=== PATIENT | male | born 1955 | race Caucasian/White ===

== ENCOUNTER 2020-06-04 15:58 | Outpatient (REF) | payer OTHER, SELFPAY ==
[2020-06-10 09:11] LABS: SARS-CoV-2 RNA Undetected (Undetected); SARS-CoV-2 Specimen Source Nasopharynx
== END 2020-06-04 16:18 ==
LOC: NCHCN 15:58
PROVIDERS: PCP Nurse Practitioner Family; Visit Provider Nurse Practitioner Family
DX: R05 Cough (principal)
CPT/HCPCS: U0003

== ENCOUNTER 2020-06-28 10:39 | Outpatient (REF) | payer OTHER, SELFPAY ==
[2020-06-28 21:56] LABS: Hemoglobin A1C 11.3 % (3.8-5.6)
[2020-06-28 22:10] LABS: ALT 30 U/L (16-63); AST 17 U/L (15-37); Albumin 3.7 g/dL (3.4-5.0); Alkaline Phosphatase 75 U/L (46-116); Anion Gap 6.7 mmol/L (3-11); BUN 23 mg/dL (7-18); Bilirubin, Total 0.6 mg/dL (0.2-1.0); CO2 30.3 mmol/L (21.0-32.0); CREATININE 0.86 mg/dL (0.70-1.30); Calcium 9.2 mg/dL (8.5-10.1); Calculated LDL 116 mg/dL (<100); Chloride 105 mmol/L (98-107); Cholesterol 220 mg/dL (<200); Glucose 173 mg/dL (74-106); HDL Cholesterol 50 mg/dL (40-60); Sodium 142 mmol/L (136-145); Total Protein 6.9 g/dL (6.4-8.2); Triglyceride 270 mg/dL (<150)
[2020-07-01 09:26] LABS: PSA, Screening 10.2 ng/mL (0.0-4.5)
== END 2020-06-28 10:59 ==
LOC: NCHCN 10:39
PROVIDERS: PCP Nurse Practitioner Family; Visit Provider Family Medicine
DX: Z00.00 Encounter for general adult medical examination without abnormal findings (principal)
CPT/HCPCS: 80053; 80061; 84153; 83036

== ENCOUNTER 2020-09-02 13:33 | Outpatient (REF) | payer SELFPAY ==
[2020-09-02 21:21] LABS: HGB 15.4 g/dL (13.5-17.5); MCH 28.4 pg (27.0-33.0); MCHC 31.4 % (32.0-36.0); MCV 90.2 fL (80-95); MPV 10.7 fL (8.0-11.0); Platelet Count 206 10^3/uL (130-400); RBC 5.43 10^6/uL (4.36-5.78); RDW 13.2 % (11.8-14.1); RDW-SD 43.2 fL; WBC 7.33 10^3/uL (4.4-10.8)
[2020-09-02 21:54] LABS: ALT 60 U/L (16-63); AST 23 U/L (15-37); Albumin 3.4 g/dL (3.4-5.0); Alkaline Phosphatase 106 U/L (46-116); Anion Gap 8.4 mmol/L (3-11); BUN 23 mg/dL (7-18); Bilirubin, Total 0.8 mg/dL (0.2-1.0); CO2 28.6 mmol/L (21.0-32.0); CREATININE 0.98 mg/dL (0.70-1.30); Calcium 8.9 mg/dL (8.5-10.1); Chloride 104 mmol/L (98-107); Creatine Kinase 79 U/L (39-308); Glucose 300 mg/dL (74-106); NT-proBNP 5629 pg/mL (<300); Potassium 4.2 mmol/L (3.5-5.1); Sodium 141 mmol/L (136-145); Total Protein 6.4 g/dL (6.4-8.2)
== END 2020-09-02 13:53 ==
LOC: NCHCN 13:33
PROVIDERS: PCP Nurse Practitioner Family; Visit Provider Internal Medicine
DX: R07.9 Chest pain, unspecified (principal); R05 Cough
CPT/HCPCS: 80053; 82550; 85027; 83880

== ENCOUNTER 2020-12-05 02:04 | Outpatient (CLI) | payer BC, SELFPAY ==
[2020-12-06 15:56] LABS: COVID-19 RT-PCR UVMMC Result Negative (Negative)
== END 2020-12-05 02:24 ==
PROVIDERS: PCP Family Medicine; Visit Provider Internal Medicine Cardiovascular Disease
DX: Z11.52 Encounter for screening for COVID-19 (principal); Z01.810 Encounter for preprocedural cardiovascular examination
CPT/HCPCS: U0003

== ENCOUNTER 2020-12-13 04:17 | Outpatient (CLI) | payer BC, SELFPAY ==
--- NOTE | 2020-12-13 11:00 | ETT_ITS ---
APPROVED REPORT Exam: Exercise Treadmill Patient Location: Out-Patient Room/Bed: Stress Nurse: Misty Bueno RN Ordering Provider:HOPE LUKE, Contact Number: [phone] BMI: 30.70 Baseline Rhythm: Sinus Rhythm Comment: frequent multifocal PVCs, couplets Indications: Exertional chest pain. Medical History Medical History: Cerebral Aneurysm, HTN, HLD, DM, Obesity, Peripheral Edema, Subarachnoid hemorrhage, LV dysfunction Cardiac Medications: Metformin, Valsartan, Amlodipine, ASA, Januvia, Pantoprazole, Furosemide, Glipiz timo, Nitro SL. Allergies: Metoprolol succinate Cardiac Risk Factors: HTN, Hyperlipidemia, Diabetes (non-insulin), Obesity Previous Cardiac Procedures: None Pretest Chest Pain Characteristics: Nonexertional epigastric pressure, 2/10 Exercise History: Sedentary Physical Disabilities: None. Lung Sounds: Clear to auscultation Heart Sounds: Regular, Regular Stress Test Details Test: Exercise stress testing was performed using a modified Satinder protocol. Rest Stress HR Resting HR Supine: 98 bpm Max Heart Rate (APMHR): 157 bpm Resting HR Standin bpm Target HR (85% APMHR): 133 bpm Max HR Achieved: 138 bpm % of APMHR: 87 Recovery HR: 105 bpm HR response to stress: Normal HR response to stress BP Resting BP Supine: 132/72 mmHg Resting BP Standin/70 mmHg Max BP: 152/82 mmHg Recovery BP: 140/90 mmHg BP response to stress: Normal blood pressure response to stress. Comment: delayed BP recovery. ECG Resting ECG: Sinus Rhythm Ectopy: frequent multifocal PVCs, couplets Stress ECG: Sinus Tachycardia, , Clear, Sinus Rhythm, Sinus Bradycardia, Sinus Tachycardia ST Change: No significant ST segment changes noted Arrhythmia: frequent mutifocal PVCs, couplets Recovery ECG: Sinus Tachycardia Recovery ST Change: No significant ST segment changes noted Recovery Arrhythmia: frequent multifocal PVCs, couplets, 3 beat VT Clinical Reason for Termination: Fatigue, Dyspnea Stress Symptoms: Dyspnea Exercise duration: 6 min28 sec Highest Stage Reached: Stage 3: 3.4 mph at 14% grade. Exercise capacity: 7.29 METs Law Treadmill Score: 4.8 Rate Pressure Product: [id number] Stress ECG Conclusion 1. The resting EKG was normal 2. The patient exercised on the modified Satinder protocol and completed a workload of 7.29 METS. He ex ercised for 6 minutes and 28 seconds stopping due to shortness of breath and fatigue 3. The patient achieved 87% of predicted heart rate for age. Heart rate and blood pressure response to exercise was normal 4. Electrocardiographically there was no evidence of myocardial ischemia 5. Occasional premature ventricular contractions were present throughout Law Treadmill Score is 4.8 which is Moderate risk. Stress Test Summary STAGE Time (mins) Speed (mph) Grade (%) HR BP SYMPTOMS METS Supine 98 132/72 Standing 104 128/70 1 3 1.7 10 126 152/82 SpO2 95%, SOB 4.6 2 6 2.5 12 130 7 1 min recovery 129 168/92 SpO2 85%, SOB 3 min recovery 114 194/106 SpO2 89%, SOB resolved 6 min recovery 106 182/106 SpO2 94% 9 min recovery 106 154/106 12 min recovery 105 140/90 Max speed on treadmill 2.5 mph; modified in the 3rd stage to maintain activity. Patient reports slight, constant epigastric pressure at baseline (2/10), unchanged during ETT.
== END 2020-12-13 04:37 ==
PROVIDERS: PCP Family Medicine; Visit Provider Internal Medicine Cardiovascular Disease
DX: R07.89 Other chest pain (principal); I10 Essential (primary) hypertension; E78.5 Hyperlipidemia, unspecified; E11.9 Type 2 diabetes mellitus without complications; E66.9 Obesity, unspecified
CPT/HCPCS: 93017

== ENCOUNTER 2020-12-20 17:31 | Outpatient (REF) | payer BC, SELFPAY ==
[2020-12-20 13:36] LABS: HGB 14.6 g/dL (13.5-17.5); MCH 27.7 pg (27.0-33.0); MCHC 31.1 % (32.0-36.0); Platelet Count 241 10^3/uL (130-400); RBC 5.28 10^6/uL (4.36-5.78); RDW 14.1 % (11.8-14.1); RDW-SD 45.8 fL; WBC 7.37 10^3/uL (4.4-10.8)
[2020-12-20 14:06] LABS: ALT 25 U/L (16-63); AST 16 U/L (15-37); Albumin 3.4 g/dL (3.4-5.0); Alkaline Phosphatase 92 U/L (46-116); BUN 26 mg/dL (7-18); Bilirubin, Total 0.5 mg/dL (0.2-1.0); Calcium 8.8 mg/dL (8.5-10.1); Chloride 106 mmol/L (98-107); Glucose 140 mg/dL (74-106); Potassium 4.3 mmol/L (3.5-5.1); Sodium 144 mmol/L (136-145); TSH (W/Ref FT4) 2.43 uIU/mL (0.36-3.74); Total Protein 6.5 g/dL (6.4-8.2)
== END 2020-12-20 17:51 ==
LOC: NCHCN 17:31
PROVIDERS: PCP Family Medicine; Visit Provider Family Medicine
DX: I50.9 Heart failure, unspecified (principal); R07.89 Other chest pain; R60.9 Edema, unspecified; Z01.812 Encounter for preprocedural laboratory examination
CPT/HCPCS: 80053; 85027; 84443

== ENCOUNTER 2020-12-24 02:22 | Outpatient (CLI) | payer BC, SELFPAY ==
--- NOTE | 2020-12-24 15:07 | DI.US_ITS ---
APPROVED REPORT EXAM: Comprehensive 2D, Doppler, and color-flow Echocardiogram Patient Location: Out-Patient [place] Trimmer: Karen Louis RDCS (AE) Indications: CHF Other Information Study Quality: Adequate Conclusion The left ventricle is mildly dilated. There is borderline concentric left ventricular hypertrophy. Estimated ejection fraction is approximately 25%. There is global hypokinesis The right ventricle is normal in size and mildly hypokinetic The left atrium is severely dilated. The right atrium is moderately dilated The aortic valve is structurally normal without stenosis or regurgitation Mildly thickened mitral leaflets with moderate regurgitation The tricuspid valve is structurally normal with mild to moderate regurgitation. Estimated right vent ricular systolic pressure is 50 mmHg consistent with moderate pulmonary hypertension Normal pulmonic valve with mild regurgitation Moderately dilated ascending aorta, 4.22 cm Wall motion Left Ventricle Left ventricle is moderately dilated. Left ventricular systolic function is moderate to severely decr eased. Borderline concentric left ventricular hypertrophy. There is global hypokinesis of the left ve ntricle. There is no ventricular septal defect visualized. LVEF is 25%. Right Ventricle The right ventricle is normal size. Right ventricle is mildly hypokinetic. The RVSP is 50.5mmHg. Righ t ventricle is hypertrophied. Right ventricle free wall is thin. Atria Left atrium is severely dilated. Right atrium is moderately dilated. The interatrial septum is intact with no evidence for an atrial septal defect. Aortic Valve Aortic valve is trileaflet. There is no aortic valvular stenosis. No aortic regurgitation is present. Mitral Valve Mildly thickened mitral leaflets No evidence of mitral valve stenosis. moderate mitral regurgitation. Tricuspid Valve The tricuspid valve is normal in structure. There is no tricuspid valve stenosis. Mild to moderate tr icuspid regurgitation. Pulmonic Valve The pulmonary valve is normal in structure. There is no pulmonic valvular stenosis. Mild pulmonic reg urgitation. Great Vessels The aortic root is normal in size. The ascending aorta is moderately dilated. Aortic arch is not well visualized. The IVC collapses <50% with inspiration. Pericardium There is no pericardial effusion. 2D Dimensions IVSD d PLAX 1.23 cm M: 0.6-1.2 LV Vol A2C d MOD 215.9 mL LVPW d PLAX 1.22 cm M: 0.6 - 1.2 LV Vol A4C d MOD 215.1 mL LVID d PLAX 6.43 cm M: 4.2 - 5.8 LA vol/ BSA A2C s A-L 46.8 mL/m2 LVDs 5.75 cm M: 2.5 - 4.0 LA vol/ BSA A4C s A-L 55.1 mL/m2 Ao Root d 3.18 cm M: 3.1 - 3.7 LA Vol/ BSA Biplane s A-L 54.0 mL/m2 RA Area A4C 26.83 cm2 LA Area A4C s MOD 32.44 cm2 RA Vol/ BSA A4C s A-L 42.5 mL/m2 LA Area A2C s MOD 28.13 cm2 Ao Asc Diam d 4.22 cm M: 2.6 - 3.4 LV EF A4C MOD 25.1 % LV EF Teichholz 21.1 % LV EF A2C MOD 26.5 % LVEF (Kong's) 24.18 % M: 52 - 72 LV EF Biplane MOD 24.2 % LV Volume 160.28 mL M: 62 - 150 SV 52.95 mL LV Volume Index 74.54 mL/m2 M: 34 - 74 SV Index 24.55 mL/m2 LV Vol Biplane MOD 219.0 mL FS 9.80 % M-Mode TAPSE 1.61 cm (M/F) >1.7 LV Diastology MV E' medial 0.079 (>0.07 m/s) MV E Vmax 0.92 (0.4-1.3 m/s) LV E/e MED 11.55 (<14) MV E' lateral 0.075 (>0.1 m/s) LV E/e LAT 12.30 (<14) MV E/E' medial 11.57 MV E/E' lateral 12.33 Aortic Valve LVOT Area 3.94 cm2 AoV Area Vmax 3.64 cm2 LVOT Vmax 1.05 m/s AoV Area/ BSA (Vmax) 1.69 cm2/m2 LVOT Mean Abebe. 0.70 m/s DANILO Mean Abebe. 3.35 cm2 LVOT Peak Grad 4.4 mmHg DANILO Mean Abbee. Index 1.55 cm2/m2 LVOT Mean Grad 2.2 mmHg LVOT VTI 0.150 m LVOT Diam s 2.20 cm AoV Vmax 1.13 m/s Velocity Ratio 0.92 AoV Mean Abebe. 0.82 m/s AoV Peak Grad 5.2 mmHg LVOT SV 59.11 mL AoV Mean Grad 2.9 mmHg AoV VTI 0.166 m AoV Area VTI 3.56 cm2 AoV Area/ BSA (VTI) 1.65 cm/m2 Mitral Valve MV DT 179 (160-240 msec) MR Vmax 3.84 m/s MV PHT 52 msec MR VTI 1.080 m MV Area PHT 4.23 cm2 MR Peak Grad 58.9 mmHg MV VTI 0.206 m MR Mean Grad 48.4 mmHg MV VTI Annulus 0.210 m MR PISA Radius 0.49 cm MV Area VTI 2.92 (4.0-6.0 cm2) MR EROA 0.14 cm2 MR Aliasing Velocity 0.35 m/s MR PISA 1.52 cm2 Pulmonary Valve PV Vmax 0.70 (0.5-1.5 m/s) RVOT Peak Gr. 0.82 mmHg PV Peak Grad 2.0 mmHg RVOT Mean Gr. 0.40 mmHg PV Mean Grad 1.1 mmHg RVOT VTI 0.072 m PV VTI 0.109 m RVOT Vmax 0.45 m/s Tricuspid Valve TR Peak Grad 42.4 mmHg TR Vmax 3.26 m/s RA Pressure 8.00 mmHg RVSP (TR) 50.5 mmHg
== END 2020-12-24 02:42 ==
PROVIDERS: PCP Family Medicine; Visit Provider Family Medicine
DX: I08.1 Rheumatic disorders of both mitral and tricuspid valves (principal)
CPT/HCPCS: 93306

== ENCOUNTER 2021-01-06 09:47 | Outpatient (REF) | payer BC, SELFPAY ==
[2021-01-06 14:25] LABS: Anion Gap 8.2 mmol/L (3-11); BUN 37 mg/dL (7-18); CO2 28.8 mmol/L (21.0-32.0); CREATININE 1.4 mg/dL (0.70-1.30); Chloride 102 mmol/L (98-107); Estimated GFR 51.18 (mL/min/1.73m2); Glucose 212 mg/dL (74-106); Potassium 4.1 mmol/L (3.5-5.1); Sodium 139 mmol/L (136-145)
== END 2021-01-06 09:48 | disposition home or self-care (01) ==
LOC: NCHCN 09:47
PROVIDERS: PCP Family Medicine; Visit Provider Family Medicine
DX: E11.9 Type 2 diabetes mellitus without complications (principal); I50.9 Heart failure, unspecified
CPT/HCPCS: 80048

== ENCOUNTER 2021-01-30 09:37 | Outpatient (CLI) | payer BC, SELFPAY ==
--- NOTE | 2021-01-30 09:30 | RT.EKG_ITS ---
APPROVED REPORT Exam: Resting ECG Patient Location: O HR:82 bpm ECG Measurements Heart Rate 82 AXIS MO 197 P 47 QRSd 120 QRS -15 QT 436 T 51 QTc 510 Conclusion Sinus rhythm...normal P axis, V-rate 50- 99 Ventricular premature complex...V complex w/ short R-R interval Left atrial enlargement...P, P'>60mS, <-0.15mV V1 Nonspecific intraventricular conduction delay...QRSd >115mS, not LBBB/RBBB Inferior infarct, old...Q >35mS, II III aVF Lateral leads are also involved...lat Q or ST-T abnormalities Baseline wander in lead(s) V6
== END 2021-01-30 09:38 | disposition home or self-care (01) ==
LOC: DI.CARD 09:38
PROVIDERS: PCP Family Medicine; Visit Provider Internal Medicine Cardiovascular Disease
DX: I34.0 Nonrheumatic mitral (valve) insufficiency (principal); I77.810 Thoracic aortic ectasia; I50.20 Unspecified systolic (congestive) heart failure
CPT/HCPCS: 93010

== ENCOUNTER 2021-02-07 03:36 | Outpatient (CLI) | payer BC, SELFPAY ==
[2021-02-07 11:32] LABS: Hemoglobin A1C 8.1 % (<5.7)
[2021-02-07 12:03] LABS: ALT 28 U/L (16-63); AST 19 U/L (15-37); Albumin 3.4 g/dL (3.4-5.0); Alkaline Phosphatase 109 U/L (46-116); Anion Gap 8.1 mmol/L (3-11); BUN 25 mg/dL (7-18); Bilirubin, Total 0.6 mg/dL (0.2-1.0); CO2 30.9 mmol/L (21.0-32.0); CREATININE 1.1 mg/dL (0.70-1.30); Chloride 102 mmol/L (98-107); Glucose 147 mg/dL (74-106); NT-proBNP 2028 pg/mL (<300); Potassium 3.7 mmol/L (3.5-5.1); Sodium 141 mmol/L (136-145); TSH 2.71 uIU/mL (0.36-3.74); Total Protein 7.3 g/dL (6.4-8.2)
== END 2021-02-07 03:37 | disposition home or self-care (01) ==
LOC: LBO 03:36
PROVIDERS: PCP Family Medicine; Visit Provider Internal Medicine Cardiovascular Disease
DX: E11.65 Type 2 diabetes mellitus with hyperglycemia (principal); I50.20 Unspecified systolic (congestive) heart failure
CPT/HCPCS: 36415; 80053; 83036; 83880; 84443

== ENCOUNTER 2021-03-28 11:00 | Outpatient (RCR) | payer BC, SELFPAY | END 2021-03-28 23:59 | disposition home or self-care (01) | LOC: CR 11:00 | PROVIDERS: PCP Family Medicine; Visit Provider Family Medicine | DX: I25.10 Atherosclerotic heart disease of native coronary artery without angina pectoris (principal); Z51.89 Encounter for other specified aftercare; Z95.5 Presence of coronary angioplasty implant and graft; I50.9 Heart failure, unspecified | CPT/HCPCS: S9472 ==

== ENCOUNTER 2021-04-02 11:00 | Outpatient (RCR) | payer BC, SELFPAY | END 2021-04-28 23:59 | disposition home or self-care (01) | LOC: CR 11:00 | PROVIDERS: PCP Family Medicine; Visit Provider Family Medicine | DX: Z51.89 Encounter for other specified aftercare (principal); I25.10 Atherosclerotic heart disease of native coronary artery without angina pectoris; Z95.5 Presence of coronary angioplasty implant and graft | CPT/HCPCS: S9472 ==

== ENCOUNTER 2021-04-14 09:31 | Outpatient (REF) | payer BC, SELFPAY ==
[2021-04-14 13:37] LABS: BUN 23 mg/dL (7-18); CREATININE 1.1 mg/dL (0.70-1.30); Chloride 102 mmol/L (98-107); Glucose 136 mg/dL (74-106); Potassium 3.8 mmol/L (3.5-5.1); Sodium 142 mmol/L (136-145)
== END 2021-04-14 09:32 | disposition home or self-care (01) ==
LOC: NCHCN 09:31
PROVIDERS: PCP Family Medicine; Visit Provider Family Medicine
DX: E11.9 Type 2 diabetes mellitus without complications (principal); I50.9 Heart failure, unspecified
CPT/HCPCS: 80048

== ENCOUNTER 2021-04-14 14:17 | Outpatient (CLI) | payer BC, SELFPAY ==
--- NOTE | 2021-04-18 10:45 | DI.CT_ITS ---
Exam(s) CT BRAIN NECK CTA EXAM: CT BRAIN NECK CTA CLINICAL HISTORY: CEREBRAL ANEURYSM I67.1. TECHNIQUE: Imaging Protocol: Axial CT angiography was performed with multi-slice acquisition and mu lti-planar and/or 3D reconstructions. CONTRAST MATERIAL: Intravenous: Omnipaque 350 Contrast volume:structured data in ml COMPARISON: No exams were available for comparison FINDINGS: CT angiography of the cervical cranial region was performed according to the usual protocol with intr avenous infusion of 85 cc of Omnipaque 350.. Initial noncontrast scanning of the head shows aneurysm clips in place which appear to be associated with anterior communicating arteries and anterior cerebral arteries. Frontal craniotomy is noted. T here is no evidence of acute intracranial hemorrhage, mass effect, or midline shift. Left frontal en cephalomalacia is noted. Visualized lung apices are clear. Visualized portions of thoracic aorta and pulmonary arterial circul ation are unremarkable. There is no evidence of a cervical mass or adenopathy. The tracheal laryngeal structures appear intact. The common, internal, and external carotid arteries are within normal limits in the cervical region e xcept for slight atheromatous plaque formation in the regions of the carotid bifurcations. With no e vidence of aneurysm, stenosis, or dissection. The vertebral arteries are unremarkable in appearance in the cervical region with no evidence of aneu rysm, stenosis, or dissection. Intracranial portions of the internal carotid arteries appear normal with no evidence of aneurysm, st enosis, or dissection. Intracranial vertebral arteries and basilar artery appear normal with no evidence of aneurysm, stenos is or dissection. No aneurysm identified in the region of the [id number]. Aneurysm clips noted in anterior commu nicating artery and anterior cerebral artery regions. No evidence of significant stenosis, dissectio n, or recurrent aneurysm. 5 minutes delayed images show no evidence of intracranial mass lesion or enhancing lesion. IMPRESSION: No evidence of acute process. Left frontal encephalomalacia, prior frontal craniotomy with multiple aneurysm clips placed as described above corresponding to anterior communicating arteries, and aneury sm clips associated with anterior cerebral arteries at the level of the frontal horns of the lateral ventricles. RADIATION DOSE DELIVERED: 2,313.67mGy.cmTotal DLP 2,313.67mGy.cm Total DLP DATA REPOSITORY: All CT scans at this facility are submitted to the National Radiology Data Registry (NRDR) Dose Index Registry (DIR) with the [employer] (A[employer]). RADIATION OPTIMIZATION: All CT scans at this facility use at least one of these dose optimization te chniques: automated exposure control; mA and/or kV adjustment per patient size (includes targeted exa ms where dose is matched to clinical indication); or iterative reconstruction.
[2021-04-18] MEDS: Omnipaque 350 MG/ML 100 ML BTL IJ (11:55)
[2021-04-18] MEDS: Normal Saline - Diluent 50 ML VIAL IV (11:56)
== END 2021-04-14 14:37 ==
PROVIDERS: PCP Family Medicine; Visit Provider Family Medicine
DX: I67.1 Cerebral aneurysm, nonruptured (principal)
CPT/HCPCS: 70496; 70498; J3490

== ENCOUNTER 2021-06-12 02:25 | Outpatient (CLI) | payer BC, SELFPAY ==
--- NOTE | 2021-06-12 14:23 | DI.US_ITS ---
APPROVED REPORT EXAM: Comprehensive 2D, Doppler, and color-flow Echocardiogram Patient Location: Out-Patient [place] Operator: Karen Louis RDCS (AE) Indications: Cardiomyopathy, Dilated ascending aorta, Mitral Regurgitation Other Information Study Quality: Adequate Conclusion Left Ventricle : Left ventricle is borderline dilated. Left ventricular systolic function is low norm al. Mild concentric left ventricular hypertrophy. There is global hypokinesis of the left ventricle. The left ventricular diastolic function is normal. LVEF is 50%. Right Ventricle : The right ventricle is normal size. The right ventricular systolic function is norm al. The RVSP is 22.1mmHg. Atria : The left atrium size is normal. The right atrium size is normal. Mitral Valve : The mitral valve is mildly thickened but opens well. Mild mitral regurgitation. No carmina dence of mitral valve stenosis. Great Vessels : The aortic root is normal in size. The ascending aorta is moderately dilated (4cm). A ortic arch is not well visualized. IVC is normal in size and collapses >50% with inspiration. Compared to study from 12/24/2020, patient's ejection fraction has improved from 25% to 50%. His mitr al regurgitation has also improved from moderate to mild. Wall motion Left Ventricle Left ventricle is borderline dilated. Left ventricular systolic function is low normal. Mild concentr ic left ventricular hypertrophy. There is global hypokinesis of the left ventricle. The left ventricu lar diastolic function is normal. There is no ventricular septal defect visualized. LVEF is 50%. Right Ventricle The right ventricle is normal size. The right ventricular systolic function is normal. The RVSP is 22 .1mmHg. Atria The left atrium size is normal. The right atrium size is normal. The interatrial septum is intact wit h no evidence for an atrial septal defect. Aortic Valve The aortic valve is normal in structure. Aortic valve is trileaflet. There is no aortic valvular sten osis. No aortic regurgitation is present. Mitral Valve The mitral valve is mildly thickened but opens well. No evidence of mitral valve stenosis. Mild jose l regurgitation. Tricuspid Valve The tricuspid valve is normal in structure. There is no tricuspid valve stenosis. Mild tricuspid regu rgitation. Pulmonic Valve The pulmonary valve is normal in structure. There is no pulmonic valvular stenosis. Mild pulmonic reg urgitation. Great Vessels The aortic root is normal in size. The ascending aorta is moderately dilated (4cm). Aortic arch is no t well visualized. IVC is normal in size and collapses >50% with inspiration. Pericardium There is no pericardial effusion. 2D Dimensions IVSD d PLAX 1.23 cm M: 0.6-1.2 LV Vol A2C d MOD 185.2 mL LVPW d PLAX 1.22 cm M: 0.6 - 1.2 LV Vol A4C d MOD 187.6 mL LVID d PLAX 5.83 cm M: 4.2 - 5.8 LA vol/ BSA A2C s A-L 29.3 mL/m2 LVDs 4.20 cm M: 2.5 - 4.0 LA vol/ BSA A4C s A-L 22.6 mL/m2 Ao Root d 3.40 cm M: 3.1 - 3.7 LA Vol/ BSA Biplane s A-L 27.0 mL/m2 RA Area A4C 20.00 cm2 LA Area A4C s MOD 17.97 cm2 RA Vol/ BSA A4C s A-L 28.2 mL/m2 LA Area A2C s MOD 19.49 cm2 Ao Asc Diam d 4.01 cm M: 2.6 - 3.4 LV EF A4C MOD 50.4 % LV EF Teichholz 53.3 % LV EF A2C MOD 50.7 % LVEF (Kong's) 49.36 % M: 52 - 72 LV EF Biplane MOD 49.4 % LV Volume 139.38 mL M: 62 - 150 SV 93.01 mL LV Volume Index 67.00 mL/m2 M: 34 - 74 SV Index 44.57 mL/m2 LV Vol Biplane MOD 188.5 mL FS 27.90 % M-Mode TAPSE 1.68 cm (M/F) >1.7 LV Diastology MV E' medial 0.060 (>0.07 m/s) E/A Ratio 0.6 LV E/e MED 7.65 (<14) MV E Vmax 0.46 (0.4-1.3 m/s) MV E' lateral 0.073 (>0.1 m/s) MV A Vmax 0.80 (0.4-1.3 m/s) LV E/e LAT 6.25 (<14) MV E/A Ratio 0.55 MV E/E' medial 7.65 MV E/E' lateral 6.25 Aortic Valve LVOT Area 3.49 cm2 AoV Area Vmax 2.36 cm2 LVOT Vmax 1.23 m/s AoV Area/ BSA (Vmax) 1.13 cm2/m2 LVOT Mean Abebe. 0.75 m/s DANILO Mean Abebe. 1.99 cm2 LVOT Peak Grad 6.0 mmHg DANILO Mean Abebe. Index 0.95 cm2/m2 LVOT Mean Grad 2.8 mmHg LVOT VTI 0.251 m LVOT Diam s 2.10 cm AoV Vmax 1.81 m/s Velocity Ratio 0.67 AoV Mean Abebe. 1.32 m/s AoV Peak Grad 13.1 mmHg LVOT SV 87.60 mL AoV Mean Grad 7.4 mmHg AoV VTI 0.377 m AoV Area VTI 2.33 cm2 AoV Area/ BSA (VTI) 1.11 cm/m2 Mitral Valve MV DT 265 (160-240 msec) MR Vmax 4.69 m/s MV PHT 77 msec MR VTI 1.453 m MV Area PHT 2.86 cm2 MR Peak Grad 88.1 mmHg MV VTI 0.373 m MR Mean Grad 66.4 mmHg MV VTI Annulus 0.378 m MV Area VTI 2.38 (4.0-6.0 cm2) Pulmonary Valve PV Vmax 1.07 (0.5-1.5 m/s) RVOT Peak Gr. 2.55 mmHg PV Peak Grad 4.6 mmHg RVOT Mean Gr. 1.35 mmHg PV Mean Grad 2.3 mmHg RVOT VTI 0.157 m PV VTI 0.244 m RVOT Vmax 0.80 m/s Tricuspid Valve TR Peak Grad 19.1 mmHg TR Vmax 2.19 m/s RA Pressure 3.00 mmHg RVSP (TR) 22.1 mmHg
== END 2021-06-12 02:45 ==
PROVIDERS: PCP Family Medicine; Visit Provider Internal Medicine Cardiovascular Disease
DX: I77.810 Thoracic aortic ectasia (principal); I34.0 Nonrheumatic mitral (valve) insufficiency
CPT/HCPCS: 93306

== ENCOUNTER 2022-07-20 09:54 | Outpatient (CLI) | payer BC, SELFPAY ==
--- NOTE | 2022-07-20 09:45 | RT.EKG_ITS ---
APPROVED REPORT Exam: Resting ECG Reason for Exam: Annual Check Patient Location: O HR:70 bpm ECG Measurements Heart Rate 70 AXIS VA 212 P 57 QRSd 106 QRS -14 QT 400 T 56 QTc 432 Conclusion Sinus rhythm...normal P axis, V-rate 50- 99 Borderline prolonged VA interval...VA >212, V-rate 50- 90 Left atrial enlargement...P, P'>60mS, <-0.15mV V1 early transition...QRS area>0 in V2 Possible Inferior infarct, old...Q >35mS, II III aVF
== END 2022-07-20 09:55 | disposition home or self-care (01) ==
LOC: DI.CARD 09:55
PROVIDERS: PCP Family Medicine; Visit Provider Internal Medicine Cardiovascular Disease
DX: I10 Essential (primary) hypertension (principal); I25.10 Atherosclerotic heart disease of native coronary artery without angina pectoris; I34.0 Nonrheumatic mitral (valve) insufficiency; I50.20 Unspecified systolic (congestive) heart failure; I77.810 Thoracic aortic ectasia; R94.31 Abnormal electrocardiogram [ECG] [EKG]
CPT/HCPCS: 93010

== ENCOUNTER 2023-01-12 09:15 | Emergency (ER) | payer BC, SELFPAY ==
[2023-01-12] VITALS (46 sets, daily range): BP systolic 132–159; BP diastolic 88–100; PULSE 65–82; RESP 9–21; TEMP 36.8; O2SAT 92–99
--- NOTE | 2023-01-12 09:45 | DI.RAD_ITS ---
Exam(s) XR CHEST 2V PA LATERAL EXAM: XR CHEST 2V PA LATERAL CLINICAL HISTORY: AMS/mentation changes. TECHNIQUE: 2D digital imaging was performed. COMPARISON: No exams were available for comparison FINDINGS: 2 views: Cardiomegaly. Mediastinum not widened. Lungs are clear. No infiltrates nor pleural effusions. No pulmonary edema. IMPRESSION: No acute pulmonary findings. Cardiomegaly. DATA REPOSITORY: RADIATION DOSE DELIVERED:
--- NOTE | 2023-01-12 10:00 | RT.EKG_ITS ---
APPROVED REPORT Exam: Resting ECG Reason for Exam: Word finding difficulties Patient Location: E HR:76 bpm ECG Measurements Heart Rate 76 AXIS AR 202 P 113 QRSd 103 QRS -8 QT 422 T 79 QTc 474 Conclusion Sinus rhythm...normal P axis, V-rate 60- 99 Probable left atrial enlargement...P >50mS, <-0.10mV V1 Inferior infarct, old...Q >35mS, II III aVF Normal sinus rhythm rate of 76 with interventricular conduction delay first-degree AV block and left axis deviation. QTc within normal limits. T wave inversion in aVL. Compared to prior dated last ye ar first-degree AV block interventricular conduction delay are persistent. T wave inversion in aVL h as replaced T wave flattening.
--- NOTE | 2023-01-12 10:00 | ED.GENADUL_ITS ---
Discharge Plan Disposition Patient Disposition: Home Discharge Details Clinical Impression: Hyperglycemia due to type 2 diabetes mellitus Primary Care Provider: Samuel Freitas ED Provider: Mehul Oconnor Home Meds and New Rx's Prescriptions: No Action metformin 1,000 mg tablet 1,000 mg PO BID aspirin 81 mg tablet,delayed release (DR/EC) 81 mg PO DAILY Patient Comments: These are not on patients home med list. glipizide 10 mg tablet 10 mg PO DAILY Patient Comments: These are not on patients home med list. furosemide 40 mg tablet 40 mg PO DAILY Qty: 90 3RF Patient Comments: These are not on patients home med list. spironolactone 25 mg tablet 25 mg PO DAILY Qty: 90 3RF Patient Comments: These are not on patients home med list. amlodipine 10 mg tablet 5 mg PO BID Qty: 180 4RF atorvastatin 20 mg tablet 20 mg PO QPM Qty: 90 3RF carvedilol 12.5 mg tablet 12.5 mg PO BID Qty: 180 3RF Rx Instructions: must administer with a meal/food Entresto 49-51 mg tablet 1 tab PO BID Qty: 60 1RF amlodipine 5 mg tablet 5 mg PO BID Patient Comments: Take 1 tablet by mouth twice a day clopidogrel [Plavix] 75 mg Tablet 75 mg PO DAILY Discharge Instructions Instructions: Diabetic Hyperglycemia (ED) Additional Instructions: You were seen in the emergency department for your difficulty speaking. Your CAT scan showed no sign of any bleeding in your head. Your blood work showed that you had some minor damage to your heart. You also had a mild injury to your kidney. Please continue checking your blood sugars at home and return to the emergency department if you cannot read them on your monitor. Please also return if you have any other concerns. Please continue taking your outpatient medications for diabetes and call your primary care provider tomorrow for follo w-up later this week. Discharge Data Discharge Date/Time-TO BE ENTERED AT DEPARTURE: 01/12/23 14:40 Medical Decision Making Medical Records Medical records narrative: This is a normothermic and not tachycardic 67-year-old male with a known history of cerebral aneurysm and type 2 diabetes in the emergency department now in the setting of transient changes in his ability to speak. He has no indication for CTA head based on his lack of upper extremity weakness lack of visual changes however based on his history cerebral aneurysm will obtain a contrast study. His fingerstick blood glucose was markedly elevated so we will obtain venous blood gas and beta hydroxybutyrate to assess for DKA. Given the duration of time since his began I do not feel that he is a candidate for tPA. He had no tonic-clonic activity to suggest seizure. No fevers to suggest meningitis. 12:10 PM I spoke with Dr. Daniel from neurology. She was concerned about the timing of the IV fluid bolus of the patient's neck. I spoke with Alla the lead injection mold technician and asked her to touch base with the radiologist to determine whether or not the patient required a repeat CT neck. Dr. Daniel also noted that given that the patient had clips from his remote cerebral aneurysm patient will be unable to obtain an MRI. She advised continuing aspirin and clopidogrel as she requested a 30-day outpatient Holter monitor. It is certainly a possibility that given the patient's known encephalomalacia that he could have recrudescence of his symptoms given his acute metabolic abnormalities. 1:10 PM Patient was feeling markedly improved. He was speaking clearly. I spoke with his primary care provider Dr. Freitas and he will help to arrange close outpatient follow-up. Asked him to follow-up with the patient. He advised continuing his oral home medications. 2:35 PM I spoke with Dr. Connolly from cardiology as the patient had a positive delta troponin. She was not concerned about this minimal change. This is likely secondary to his significant metabolic abnormalities. Unfortunately we do not have Holter monitors at the moment. Respiratory therapy will reportedly mail the patient a Holter monitor. Given that he has had no chest pain nor any dysrhythmias in the emergency department I feel that he does not require Holter monitor emergently. I did advise the patient to return to the emergency department if he had any weakness chest pain or any fevers. He understood his return indications and was discharged with outpatient PMD follow-up. His ALETHEA was improving in the emergency department. Given has not been nauseous nor vomiting I did not feel he required hospitalization for IV fluids. We will proceed with an empiric trial of expectant outpatient management with PMD follow-up. Patient's was with him throughout his entire ED course and understood his return indications. HPI General Date/Time Provider Initiated Documentation: 01/12/23 09:58 . HPI Narrative: This is a 67-year-old male with a history of cerebral aneurysm arriving via private vehicle with his in the setting of changes in the pattern of his speaking. He has a history of diabetes has not been adherent with his outpatient oral antidiabetic medications. He has had worsening disorientation word finding difficulties for the past approximately 12 hours. He has had no weakness. He has had no nausea vomiting dysuria nor frequency. He denies chest pain. 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 He did not strike his head. She does not know when he last used his insulin. Patient reports that he has not taken prescriptions but does have refills. Patient arrived as a stroke alert and based on the acuity of his presentation I did not obtain additional history. Related Data Home Medications Medication Instructions Recorded Confirmed aspirin 81 mg tablet,delayed 81 mg PO DAILY 01/30/21 07/20/22 release glipizide 10 mg tablet 10 mg PO DAILY 01/30/21 07/20/22 metformin 1,000 mg tablet 1,000 mg PO BID 01/30/21 01/12/23 furosemide 40 mg tablet 40 mg PO DAILY #90 tabs 07/20/22 07/20/22 spironolactone 25 mg tablet 25 mg PO DAILY #90 tabs 07/20/22 07/20/22 amlodipine 10 mg tablet 5 mg PO BID #180 tabs 09/21/22 atorvastatin 20 mg tablet 20 mg PO QPM #90 tabs 09/21/22 01/12/23 carvedilol 12.5 mg tablet 12.5 mg PO BID #180 tabs 09/21/22 01/12/23 sacubitril 49 mg-valsartan 51 mg 1 tab PO BID #60 tabs 09/21/22 01/12/23 tablet (Entresto) amlodipine 5 mg tablet 5 mg PO BID 01/12/23 01/12/23 clopidogrel 75 mg tablet (Plavix) 75 mg PO DAILY 01/12/23 01/12/23 Previous Rx's Medication Instructions Recorded furosemide 40 mg tablet 40 mg PO DAILY #90 tabs 07/20/22 spironolactone 25 mg tablet 25 mg PO DAILY #90 tabs 07/20/22 amlodipine 10 mg tablet 5 mg PO BID #180 tabs 09/21/22 atorvastatin 20 mg tablet 20 mg PO QPM #90 tabs 09/21/22 carvedilol 12.5 mg tablet 12.5 mg PO BID #180 tabs 09/21/22 sacubitril 49 mg-valsartan 51 mg 1 tab PO BID #60 tabs 09/21/22 tablet (Entresto) Allergies Allergy/AdvReac Type Severity Reaction Status Date / Time metoprolol AdvReac Intermediate low HR Verified 01/12/23 09:45 General Stated Complaint: CVA/TIA BAYRON: 2 PFSH All Active Problems (Updated 01/12/23 @ 14:40 by Mehul Oconnor MD) Hyperglycemia due to type 2 diabetes mellitus (Acute) Coronary artery disease (Chronic) Mild ascending aorta dilatation (Acute) Mitral regurgitation (Chronic) Heart failure with reduced ejection fraction (Acute) Hypertension (Chronic) Uncontrolled diabetes mellitus type 2 without complications (Chronic 12/07/13) Blood per rectum (Acute) Hyperlipidemia (Chronic) Cerebral aneurysm (Chronic) a. With subarachnoid hemorrhage. Social History Smoking/Tobacco Use Status: Never Smoking risk assessment performed?: Yes Alcohol Intake: current Alcohol Intake frequency: a few times a month Alcohol type: wine Drug use: Never What type of physical activity do you participate in: walking Duration: 30-45 minutes/day Additional Social history: pt is not alone to answer independently Exam Narrative Exam Narrative: general: Well-appearing in no acute distress speaking in stuttered sentences Head: Normocephalic, atraumatic Ear, nose, mouth, throat: Grossly normal inspection. Normal voice, handling secretions normally. Neck: Trachea midline. Cardiovascular: Well-perfused distal extremities. Respiratory: Nonlabored respiration. Gastrointestinal: Nondistended abdomen. Musculoskeletal: No edema. Moving all 4 extremities spontaneously. Skin: Normal for age and race, grossly normal temperature and turgor. No acute rash. Neurologic: Alert to person place time. No upper extremity weakness. No nystagmus. No aphasia. Mild dysarthria. 5 out of 5 bilateral upper and lower extremity strength.. Psychiatric: Mood and manner are appropriate. Grooming and personal hygiene are appropriate. Course Vital Signs Vital signs: Vital Signs Temperature 36.8 C 01/12/23 09:40 Pulse 82 01/12/23 09:40 Respiratory Rate 18 01/12/23 09:40 Blood Pressure 134/98 H 01/12/23 09:40 Pulse Oximetry 93 01/12/23 09:40 Temperature 36.8 C 01/12/23 09:40 Temperature Source Tympanic 01/12/23 09:40 Pulse 82 01/12/23 09:40 Respiratory Rate 18 01/12/23 09:48 Respiratory Effort Normal, Non-Labored 01/12/23 09:48 Respiratory Depth Normal 01/12/23 09:48 Blood Pressure 134/98 H 01/12/23 09:40 Pulse Oximetry 93 01/12/23 09:40 Oxygen Delivery Method Room Air 01/12/23 09:40 Oxygen Flow Rate 0 01/12/23 09:40 Pain Level 0 01/12/23 09:40
[2023-01-12 10:11] LABS: BE (Venous) 8 mmol/L (-2-3); HCO3 (Venous) 33 mmol/L (23-28); O2 Sat (Venous) 69 %; TCO2 (Venous) 28 mmol/L (24-29); pCO2 (Venous) 48 mmHg (41-51); pH (Venous) 7.44 (7.31-7.41); pO2 (Venous) 35 mmHg
[2023-01-12 10:12] LABS: Abs Immature Grans 0.02 10^3/uL (0.0-0.06); Absolute Basophil Count 0.03 10^3/uL (0.0-0.2); Absolute Eosinophil Count 0.07 10^3/uL (0.0-0.7); Absolute Lymphocyte Count 0.85 10^3/uL (1.2-3.4); Absolute Monocyte Count 0.46 10^3/uL (0.1-0.8); Absolute Neutrophil Count 5.35 10^3/uL (1.2-6.7); Basophils % 0.4; HCT 51.8 % (40.0-50.0); HGB 16.4 g/dL (13.5-17.5); Immature Grans % 0.3; Lymphocytes % 12.5; MCH 28.8 pg (27.0-33.0); MCHC 31.7 % (32.0-36.0); MCV 91 fL (80-95); MPV 10.2 fL (8.0-11.0); Monocytes % 6.8; Platelet Count 172 10^3/uL (130-400); RDW 12.9 % (11.8-14.1); RDW-SD 43.5 fL; WBC 6.78 10^3/uL (4.4-10.8)
[2023-01-12] MEDS: Normal Saline - Diluent 50 ML VIAL IJ (10:17)
[2023-01-12] MEDS: Omnipaque 350 MG/ML 500 ML BTL-Imaging package 85 ML IJ (10:18)
--- NOTE | 2023-01-12 10:25 | DI.CT_ITS ---
Exam(s) CT BRAIN NECK CTA EXAM: CT BRAIN NECK CTA CLINICAL HISTORY: Concern for aphasia history of aneurysm. TECHNIQUE: Imaging Protocol: Axial CT angiography was performed with multi-slice acquisition and mu lti-planar and/or 3D reconstructions. CONTRAST MATERIAL: Intravenous: Omnipaque 350 Contrast volume:structured data in ml COMPARISON: CT CT BRAIN NECK CTA from 04/18/2021 FINDINGS: CTA Neck W: Aortic arch anatomy: The aortic arch anatomy is conventional and there is no significant stenosis at the origin of the great vessels off of the aortic arch. No intimal flap evident. Anterior circulation: Both common carotid arteries ascend with normal luminal diameters. There is plaque at the level the carotid bulbs and proximal internal carotid arteries which exhibits minimal if any significant change compared to the prior study of 04/18/2021. No critical stenosis. Internal carotid arteries are patent but tortuous in the upper neck. Posterior circulation: Both vertebral arteries originate in conventional fashion off of the subclavian arteries and there is no obvious stenosis at the origin of the vertebral arteries. Both vertebral arteries exhibit normal luminal diameters within the foramen transversarium. Both vertebral arteries contribute to the formation of the basilar artery at the skull base. CTA Brain W: Anterior circulation: Both internal carotid arteries are patent in the skull base-carotid canals as well as within the cave rnous sinuses. Mural calcification within the intracavernous ICAs present bilaterally. The supraclinoid aspects of the ICAs are patent. A1 segments are thin as are the anterior cerebral a rteries but patent. Middle cerebral arteries are patent bilaterally. Posterior circulation: The basilar artery ascends in the midline. Distally it terminates as posterior left cerebral artery. The right posterior cerebral artery is supplied by posterior communicating artery on the right side of the [id number]. There is no evidence of aneurysm at the tip of the basilar artery nor elsewhere in the [id number] is. CT BRAIN: Again noted is frontal craniotomy. There is no evidence of intracranial hemorrhage, mass effect, or shift of midline structures. There are no new extra-axial fluid collections. Previously described aneurysm clips at the level of the an terior communicating artery and anterior interhemispheric fissure-anterior cerebral artery territory again noted. These do not exhibit migration from prior location. No new areas of hemorrhage in the brain. Area of encephalomalacia left frontal lobe with ex vacuo di latation the frontal horn left lateral ventricle is unchanged. There are no ring enhancing lesions i n the brain and no new abnormal meningeal enhancement. IMPRESSION: 1. Mild-moderate plaque at the level the carotid bifurcations and proximal internal carotid arteries bilaterally. However, there is no critical stenosis at these levels. 2. Patent vertebral arteries in the neck. 3. Stable appearance of the findings in the brain when compared to 04/18/2021. Aneurysm clips again noted in the region of the anterior communicating artery and anterior cerebral artery. No hemorrhag e nor aneurysms seen. No obvious new acute infarct. Prior frontal craniotomy and prominent area of encephalomalacia in the left frontal lobe again noted with ex vacuo dilatation left lateral ventricle . 4. No new mass effect in the brain. No new ring-enhancing lesions. Called by myself to ER physician. RADIATION DOSE DELIVERED: 2,065.74mGy.cm Total DLP DATA REPOSITORY: All CT scans at this facility are submitted to the National Radiology Data Registry (NRDR) Dose Index Registry (DIR) with the [employer] (A[employer]). RADIATION OPTIMIZATION: All CT scans at this facility use at least one of these dose optimization te chniques: automated exposure control; mA and/or kV adjustment per patient size (includes targeted exa ms where dose is matched to clinical indication); or iterative reconstruction.
[2023-01-12 10:47] LABS: ALT 17 U/L (16-63); AST 25 U/L (15-37); Albumin 3.2 g/dL (3.4-5.0); Alkaline Phosphatase 130 U/L (46-116); Anion Gap 6.2 mmol/L (3-11); BUN 30 mg/dL (7-18); Bilirubin, Total 0.7 mg/dL (0.2-1.0); CO2 29.8 mmol/L (21.0-32.0); CREATININE 1.7 mg/dL (0.70-1.30); Calcium 9.2 mg/dL (8.5-10.1); Chloride 101 mmol/L (98-107); Estimated GFR 44.18 (mL/min/1.73m2); Magnesium 2.3 mg/dL (1.8-2.4); Potassium 4.8 mmol/L (3.5-5.1); Sodium 137 mmol/L (136-145)
[2023-01-12 10:50] LABS: Glucose 615 mg/dL (74-106); Troponin I 106 ng/L (<or=60)
[2023-01-12] MEDS: Insulin REGULAR-Human 100 UNITS/ML UNIT SC (10:58)
[2023-01-12] MEDS: Normal Saline 500 ML IV (10:59)
[2023-01-12 13:38] LABS: Anion Gap 2.6 mmol/L (3-11); BUN 28 mg/dL (7-18); CO2 35.4 mmol/L (21.0-32.0); CREATININE 1.6 mg/dL (0.70-1.30); Calcium 9.1 mg/dL (8.5-10.1); Chloride 104 mmol/L (98-107); Estimated GFR 47.52 (mL/min/1.73m2); Glucose 471 mg/dL (74-106); Potassium 4.2 mmol/L (3.5-5.1); Sodium 142 mmol/L (136-145)
[2023-01-12 13:42] LABS: Troponin I 111 ng/L (<or=60)
[2023-01-12 17:34] LABS: Beta-Hydroxybutyrate 0.2 mmol/L (<0.4)
== END 2023-01-12 14:40 | disposition home or self-care (01) ==
PROVIDERS: Emergency Provider Emergency Medicine; PCP Family Medicine
DX: E11.65 Type 2 diabetes mellitus with hyperglycemia (principal); I11.0 Hypertensive heart disease with heart failure; I50.20 Unspecified systolic (congestive) heart failure; Z79.84 Long term (current) use of oral hypoglycemic drugs
CPT/HCPCS: 36415; 36416; 70496; 70498; 80048; 80053; 82805; 82962; 93005; 96360; 96372; 99285; 71046; 82010; 83735; 84484; 85025; 93010; 93225; 93226